=== PATIENT | female | born 1990 | race Caucasian/White ===

== ENCOUNTER 2018-03-02 13:34 | Emergency (ER) | payer OTHER ==
[2018-03-02 14:22] LABS: URINE BLOOD (Dip) POC 1+ (NEGATIVE); URINE GLUCOSE (Dip) POC Negative (NEGATIVE); URINE KETONES (Dip) POC Negative (NEGATIVE); URINE LEUKOCYTE EST (Dip) POC 3+ (NEGATIVE); URINE NITRITE (Dip) POC Positive (NEGATIVE); URINE TOTAL PROTEIN POC 1+ (NEGATIVE)
[2018-03-02 14:22] LABS: URINE PH (Dip) POC 6.5 (5.0-8.5)
[2018-03-02] MEDS: CEFTRIAXONE 1 GM INJ IM (14:46)
[2018-03-02] MEDS: LIDOCAINE 1% (MPF) 5 ML VIAL INJ (14:47)
== END 2018-03-02 14:59 | disposition home or self-care (01) ==
LOC: FTE 13:34
DX: R30.0 Dysuria (principal)
CPT/HCPCS: 81003; 81025; 87086; 96372; 99284-25